=== PATIENT | male | born 1960 | race Caucasian/White ===

== ENCOUNTER 2019-11-28 17:16 | Inpatient (IN) | payer OTHER ==
[~2019-11-28] VITALS: Ht 195.6 cm; Wt 87.5 kg
[~2019-11-28 17:16] MED LIST: ATORVASTATIN CA10 MG PO; METFORMIN HCL500 MG PO
[2019-11-28] MEDS ORDERED: RAMIPRIL5 MG PO (18:02)
[2019-11-28] MEDS ORDERED: PANTOPRAZOLE SO40 MG PO (18:02)
[2019-11-28] MEDS ORDERED: XIGDUO XR 5 MG1 EAC1 PO (18:02)
[2019-11-28] MEDS ORDERED: SODIUM CHLORIDE 0.9% 1000ML 1,000 ML IV STA ×2 (18:18→18:19)
[2019-11-28 18:19] LABS: BASOPHILS % 0.3 % (0.0-1.0); EOSINOPHILS % 0.1 % (0.0-6.0); HEMATOCRIT 45.9 % (38.2-49.6); HEMOGLOBIN 16.1 g/dL (14.0-18.0); LYMPHOCYTES # (AUTO) 1.8 (1.0-3.2); LYMPHOCYTES % 16.2 % (18.0-39.1); MEAN CORPUSCULAR HGB CONC 35.1 g/dL (31-35); MEAN CORPUSCULAR VOLUME 91.3 fL (81-99); MONOCYTES # (AUTO) 0.6 (0.2-0.8); MONOCYTES % 5.4 % (4.4-11.3); NEUTROPHILS # (AUTO) 8.8 (2.1-6.9); NEUTROPHILS % 77.6 % (38.7-80.0); PLATELET COUNT 182 x10e3/uL (140-360); RED BLOOD COUNT 5.03 x10e6/uL (4.3-5.7); RED CELL DISTRIBUTION WIDTH 12.4 % (11.7-14.4)
[2019-11-28 18:23] LABS: INR 0.92; PROTHROMBIN TIME 12.9 seconds (11.9-14.5)
[2019-11-28] MEDS ORDERED: SODIUM CHLORIDE 0.9% 1000ML 1,000 ML ONE (18:23)
[2019-11-28 18:24] LABS: PARTIAL THROMBOPLASTIN TIME 22.7 seconds (23.8-35.5)
[2019-11-28 18:31] LABS: AMPHETAMINES SCREEN,URINE NEGATIVE (NEGATIVE); BENZODIAZEPINES SCREEN,URINE NEGATIVE (NEGATIVE); PHENCYCLIDINE SCREEN,URINE NEGATIVE (NEGATIVE)
[2019-11-28 18:33] LABS: ALANINE AMINOTRANSFERASE 25 IU/L (0-55); ALBUMIN 3.8 g/dL (3.5-5.0); ALBUMIN/GLOBULIN RATIO 0.9 (0.8-2.0); ALKALINE PHOSPHATASE 85 IU/L (40-150); ANION GAP 21.7 mmol/L (8-16); BLOOD UREA NITROGEN 14 mg/dL (7-26); BUN/CREATININE RATIO 16 (6-25); CALCIUM 9.5 mg/dL (8.4-10.2); CARBON DIOXIDE 19 mmol/L (22-29); CHLORIDE 97 mmol/L (98-107); CREATINE KINASE 39 IU/L (30-200); EST GLOMERULAR FILTRATION RATE > 60 ML/MIN (60-); GLUCOSE 189 mg/dL (74-118); POTASSIUM 4.7 mmol/L (3.5-5.1); SODIUM 133 mmol/L (136-145)
[2019-11-28] MEDS ORDERED: VANCOMYCIN 1GM/NS 250 ML 250 ML IV ONE (18:45)
[2019-11-28] MEDS ORDERED: CEFEPIME 2 GM/NS 0.9% 100 ML 100 ML IV SCH (18:45)
--- NOTE | 2019-11-28 19:16 | Diagnostic Imaging Report ---
EXAMINATION: CHEST SINGLE (PORTABLE) INDICATION: ^SOB, DIZZY COMPARISON: None FINDINGS: TUBES and LINES: None. LUNGS: Lungs are mildly hyperinflated. There is no evidence of pneumonia or pulmonary edema. PLEURA: No pleural effusion or pneumothorax. HEART AND MEDIASTINUM: The cardiomediastinal silhouette is unremarkable. BONES AND SOFT TISSUES: No acute osseous lesion. Soft tissues are unremarkable. UPPER ABDOMEN: No free air under the diaphragm. IMPRESSION: Mild bilateral hyperinflation. No acute thoracic abnormality. Signed by: Dr. Rivka Cleveland M.D. on 11/28/2019 7:13 PM
[2019-11-28] MEDS ORDERED: ENOXAPARIN SODIUM INJ 100 MG/ML SYR SC ONE (19:27)
[2019-11-28] MEDS ORDERED: ONDANSETRON HCL INJ 2MG/ML 2ML 2 MG/ML VIAL IV PRN (19:30)
[2019-11-28] MEDS ORDERED: MORPHINE SULFATE 2 MG/ML SYR 1ML IV PRN (19:30)
[2019-11-28] MEDS ORDERED: MORPHINE SULFATE INJ 4 MG/ML INJ 1ML IV PRN (19:30)
[2019-11-28] MEDS ORDERED: ASPIRIN 325 MG TAB PO ONE (19:30)
[2019-11-28 19:32] LABS: BILIRUBIN,URINE NEGATIVE (NEGATIVE); CLARITY,URINE CLEAR (CLEAR); COLOR,URINE YELLOW (YELLOW); LEUKOCYTE ESTERASE ,URINE NEGATIVE (NEGATIVE); NITRITE,URINE NEGATIVE (NEGATIVE); PROTEIN,URINE DIPSTICK NEGATIVE (NEGATIVE); URINE UROBILINOGEN 0.2 mg/dL (0.2 - 1)
[2019-11-28 19:33] LABS: KETONES,URINE 2+ (NEGATIVE)
[2019-11-28 19:37] LABS: EPITHELIAL CELLS,URINE RARE /LPF
--- OUTSIDE RECORDS SUMMARY | 2019-11-28 19:54 | XMS REPORT ---
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 Allergies, Adverse Reactions, Alerts This patient has no known allergies or adverse reactions. Medications This patient has no known medications. Results Test Description Test Time Test Comments Text Results Atomic Results Result Comments CHEST SINGLE (PORTABLE) 2019-11-28 19:12:00 [facility] [address] [address] Patient Name: KURTIS BYNUM MR #: [id number] : 1960 Age/Sex: 58/M Req #: [id number] Adm Physician: Ordered by: NICOLAS LOEN MD Report #: [id number] Location: ER Room/Bed: Procedure: [id number] DX/CHEST SINGLE (PORTABLE) Exam Date: 11/28/19 Exam Time: 1853 REPORT STATUS: Signed EXAMINATION: CHEST SINGLE (PORTABLE) INDICA TION: SOB, DIZZY COMPARISON: None FINDINGS: TUBES and LINES: None. LUNGS: Lungs are mildly hyperinflated. There is no evidence of pneumonia or pulmonary edema. PLEURA: No pleural effusion or pneumothorax. HEART AND MEDIASTINUM: The cardiomediastinal silhouette is unremarkable. BONES AND SOFT TISSUES: No acute osseous lesion. Soft tissues are unremarkable. UPPER ABDOMEN: No free air under the diaphragm. IMPRESSION: Mild bilateral hyperinflation. No acute thoracic abnormality. Signed by: Dr. Rivka Cleveland M.D. on 11/28/2019 7:13 PM Dictated By: CECILIA CLEVELAND MD, MD 12 Transcribed By: RENNY on 11/28/191912 COPY TO: NICOLAS LEON MD
[2019-11-28] MEDS ORDERED: SODIUM CHLORIDE 0.9% 1000ML 1,000 ML IV SCH ×2 (21:00)
[2019-11-28] MEDS ORDERED: DEXTROSE 50% SYRINGE 50 ML IV PRN (21:45)
[2019-11-28 21:46] VITALS: BP 109/80
--- NOTE | 2019-11-28 21:46 | NUR ---
RECEIVED PATIENT TO ROOM FROM ED AT THIS TIME. PATIENT A&OX4, NO PAIN REPORTED. PATIENT SOB FROM TRANSFERRING TO BED, SPO2 NOTED TO BE 95, BUT DROPPED DOWN TO 88, APPLIED 2L O2 VIA NC. PROVIDED URINAL TO PATIENT TO PREVENT EXERTION. LUNG SOUNDS CLEAR. BOWEL SOUNDS ACTIVE, PEDAL PULSES PALPABLE. SKIN INTACT. R AC 18G AND L FA 20G ASYMPTOMATIC, INTACT, AND PATENT. BED LOCKED IN LOWEST POSITION, SIDE RAILS UPX2, CALL LIGHT IN REACH.
[2019-11-28 22:07] VITALS: BP 109/80
[2019-11-28] MEDS ORDERED: INFLUENZA VIRUS VAC SPLIT INJ 0.5 ML SYR IM SCH (22:07)
--- NOTE | 2019-11-28 22:26 | NUR ---
SPOKE WITH MD VALDES CONCERNING PATIENT'S HR IN 130s, SINUS TACH. NEW ORDERS RECEIVED.
[2019-11-28] MEDS ORDERED: METOPROLOL SUCCINATE 25 MG TAB XL PO SCH (22:30)
[2019-11-28] MEDS: SODIUM CHLORIDE 0.9% 1000ML 1,000 ML IV SCH (22:44)
[2019-11-28] MEDS: METOPROLOL TARTRATE 25 MG TAB PO SCH (22:54)
[2019-11-29] VITALS (8 sets, daily range): BP systolic 91–111; BP diastolic 56–71
[2019-11-29 03:18] LABS: CREATINE KINASE MB 6.5 ng/mL (0-5.0)
[2019-11-29] MEDS: METOPROLOL TARTRATE 25 MG TAB PO SCH ×3 (06:00→21:58)
[2019-11-29] MEDS: SODIUM CHLORIDE 0.9% 1000ML 1,000 ML IV SCH ×2 (06:02→14:20)
--- NOTE | 2019-11-29 07:06 | NUR ---
walking rounds completed with steward/stewardess night RN, pt has no complaints at this time, no signs of distress. will continue to monitor.
[2019-11-29] MEDS: INSULIN REGULAR, HUMAN 100 UNIT/1 ML 3ML VIAL SQ SCH ×4 (08:15→20:19)
[2019-11-29 09:01] LABS: BASOPHILS % 0.2 % (0.0-1.0); EOSINOPHILS % 0.5 % (0.0-6.0); HEMATOCRIT 38.7 % (38.2-49.6); HEMOGLOBIN 13.1 g/dL (14.0-18.0); LYMPHOCYTES # (AUTO) 2.5 (1.0-3.2); LYMPHOCYTES % 28.8 % (18.0-39.1); MEAN CORPUSCULAR HEMOGLOBIN 31.3 pg (28-32); MEAN CORPUSCULAR HGB CONC 33.9 g/dL (31-35); MEAN CORPUSCULAR VOLUME 92.6 fL (81-99); MONOCYTES # (AUTO) 0.6 (0.2-0.8); MONOCYTES % 6.5 % (4.4-11.3); NEUTROPHILS # (AUTO) 5.5 (2.1-6.9); NEUTROPHILS % 63.7 % (38.7-80.0); PLATELET COUNT 149 x10e3/uL (140-360); RED BLOOD COUNT 4.18 x10e6/uL (4.3-5.7); RED CELL DISTRIBUTION WIDTH 12.6 % (11.7-14.4)
[2019-11-29 09:19] LABS: ALANINE AMINOTRANSFERASE 23 IU/L (0-55); ALBUMIN 2.9 g/dL (3.5-5.0); ALBUMIN/GLOBULIN RATIO 0.9 (0.8-2.0); ALKALINE PHOSPHATASE 65 IU/L (40-150); ANION GAP 12.3 mmol/L (8-16); BLOOD UREA NITROGEN 11 mg/dL (7-26); BUN/CREATININE RATIO 14 (6-25); CALCIUM 8.1 mg/dL (8.4-10.2); CARBON DIOXIDE 21 mmol/L (22-29); CHLORIDE 106 mmol/L (98-107); CREATININE, SERUM 0.81 mg/dL (0.72-1.25); EST GLOMERULAR FILTRATION RATE > 60 ML/MIN (60-); GLUCOSE 210 mg/dL (74-118); POTASSIUM 4.3 mmol/L (3.5-5.1); SODIUM 135 mmol/L (136-145)
[2019-11-29 09:52] LABS: CHOL/HDL RATIO 3.4 (3.9-4.7)
[2019-11-29] MEDS ORDERED: ENOXAPARIN SODIUM INJ 100 MG/ML SYR SC NR (10:43)
--- NOTE | 2019-11-29 10:45 | NUR ---
Dr. castillo at bedside ordered 100mg Lovenox STAT dose, pt diagnosed with PE. paging Dr. Chris Rangel for pulmonary consult.
--- NOTE | 2019-11-29 11:07 | Diagnostic Imaging Report ---
EXAM: CT Chest WITH contrast- Pulmonary Embolism Protocol INDICATION: Shortness of breath, chest pain COMPARISON: Chest radiograph of 11/28/2019 TECHNIQUE: Chest was scanned utilizing a multidetector helical scanner from the lung apex through the level of the diaphragm after administration of IV contrast. Thin section reconstructions were obtained with special concentration on the pulmonary arteries. Coronal and sagittal reformations were obtained. Pulmonary embolism protocol was performed. IV CONTRAST: 100 cc of Isovue 370 RADIATION DOSE: Total DLP: 578.2 mGy*cm Dose modulation, iterative reconstruction, and/or weight based adjustment of the mA/kV was utilized to reduce the radiation dose to as low as reasonably achievable. COMPLICATIONS: None FINDINGS: LINES/ TUBES: None. PULMONARY ARTERIES: Large saddle pulmonary embolus extending from the main pulmonary artery across the bifurcation and involving all segmental and subsegmental branches of the pulmonary arteries bilaterally.. The main pulmonary artery measures 3.3 cm in diameter. Minimal leftward bowing of the interventricular septum compatible with mild component of right heart strain. LUNGS AND AIRWAYS: The central airways are patent. No focal consolidation. No pulmonary edema. Mild biapical pleural parenchymal thickening/scarring. PLEURA: The pleural spaces are clear. HEART AND MEDIASTINUM: The thyroid gland is normal. No supraclavicular, mediastinal, or hilar lymphadenopathy. The heart is not enlarged. No pericardial effusion. Moderate sliding hiatal hernia. UPPER ABDOMEN: Limited images of the upper abdomen demonstrate no focal abnormality of the partially visualized liver, gallbladder, spleen, pancreas, adrenals, or upper most kidneys. BONES: The visualized bony thorax is within normal limits. SOFT TISSUES: Unremarkable. IMPRESSION: Large saddle pulmonary embolus extending from the main pulmonary artery and involving all segmental and subsegmental branches of the pulmonary arteries bilaterally. Mild associated right heart strain. No focal pneumonia or pulmonary edema. No pulmonary infarction or hemorrhage. The above findings were discussed with Dr. Thomsa on 11/29/2019 10:55 AM, who responded indicating that the communication was understood. Signed by: Solo Yañez MD on 11/29/2019 11:03 AM
--- NOTE | 2019-11-29 11:09 | NUR ---
spoke with Dr. Darby who was paged for STAT pulmonary consult. he will come see pt today.
[2019-11-29] MEDS ORDERED: SODIUM CHLORIDE 0.9% 50ML 50 ML ONE (12:46)
[2019-11-29] MEDS ORDERED: IOPAMIDOL 370 MG/ML 200 ML INFUS..BTL INJ ONE (12:46)
--- NOTE | 2019-11-29 13:08 | NUR ---
Dr. Darby at bedside, informed him of positive DVT results per US tech.
--- NOTE | 2019-11-29 13:15 | NUR ---
Visit made by the Spiritual Care Department Pastoral Visitor, Lynette Godoy. PV provided pastoral presence, hospitality, and supportive listening. Pastoral Visitor informed pt/family of the scope of Bridge Worker Apprentice Services and availability. CHRISTIAN BONNER Stereotyper Helper Spiritual Care Department O: [phone] Pager: [phone] ([phone] number calling from)
--- NOTE | 2019-11-29 15:43 | Consultation ---
DATE OF CONSULTATION: 11/29/2019 REASON FOR CONSULTATION: Elevated troponin, [id number] myocardial infarction. HISTORY OF PRESENT ILLNESS: A 58-year-old gentleman, who is diabetic, hypertensive, hypercholesterolemic for the last 5 years. He is very active. The patient came to the emergency room with 2 days' duration of shortness of breath, dizziness. No cough. No hemoptysis. No pleuritic chest pain. No pericarditic chest pain. The patient's troponin was elevated at 0.393. His EKG showing sinus tachycardia. He is compliant with his medication. He is very active. In fact, by questioning him, he is very physically active and he had recent travel to [place]. He came back on November 04, 2019. Since that time, he is doing fine. He is very active without any symptoms or any complaint. All his problems started yesterday when he had 2 episodes of shortness of breath and dizziness and near syncope. There is some chest tightness, but no cough, no hemoptysis, no pleuritic chest pain, no recent infection. REVIEW OF SYSTEMS: GENERAL: No fever. No chills. HEENT: No vision problem. No hearing problem. PULMONARY: As per above. CARDIAC: As per above. GI: No hematemesis. No melena. : No hematuria. No dysuria. MUSCULOSKELETAL: No aches. No pains. VASCULAR: No leg swelling. No claudication. NEUROLOGICAL: No seizure. No weakness. ENDOCRINE: The patient is diabetic, very compliant with his medication. SOCIAL HISTORY: He stopped smoking many years ago. He is a social alcohol drinker. 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 He is . PAST MEDICAL HISTORY: 1. Diabetes mellitus since 2015. 2. Hypertension. 3. Hyperlipidemia. 4. Knee surgery. 5. History of left retinal detachment. FAMILY HISTORY: Father of cancer in the brain stem, questionable primary. Mother at age 72, questionable cause of . She had heart failure. He had 4 brothers. He lost a brother to lung cancer at age 55. No sisters. Two healthy children, one son and one daughter. PHYSICAL EXAMINATION: VITAL SIGNS: Height of 6 feet 5 inches, weight of 193 pounds. Blood pressure 100/60, heart rate of 100, and respiratory rate of 18, temperature 96 Fahrenheit. HEENT: Pupils are reactive. NECK: No elevation of jugular venous pulsation. No bruit. CHEST: Clear to auscultation and percussion. HEART: PMI in 5th left intercostal space on first and second heart sounds. No increased intensity of second heart sound. No right ventricular heave. ABDOMEN: Soft. There is no organomegaly. No abdominal bruits. EXTREMITIES: No cyanosis. No clubbing. No edema. No signs of deep venous thrombosis. NEUROLOGIC: Nonfocal. LABORATORY DATA: Sodium of 133, potassium of 4.7, BUN of 14, creatinine of 0.9. White blood cell count of 8.6, hemoglobin of 13.1, hematocrit 38%. PT of 12.9, PTT of 22. Transaminases are normal. EKG showing sinus tachycardia, left atrial enlargement, QS pattern in V1, V2. Troponin 0.393. Stable BNP of only 65. Lactic acid of 2.4. IMPRESSION AND PLAN: Shortness of breath with dizziness in a diabetic, hypertensive, hypercholesterolemic gentleman with elevated troponin will indicate myocardial strain. Because of the patient's history of travel, although it was concluded on November 04, there is always probability of pulmonary embolism with such presentation. A stat chest PE protocol to be done and the lab to be called to add D-dimer for the PT, PTT drawn earlier to see if it is elevated. If this is elevated, it will be very highly suspicious for PE diagnosis pending the CT PE protocol. In fact, we called the lab to run this as stat. We talked to radiological to come and take him stat for PE. Other differential diagnosis is definitely not a demand myocardial infarction, but primary coronary artery disease, which is very common in a diabetic, hypertensive, hypercholesterolemic gentlemen in this age. So, in summary, the plan is to do stat chest CT PE protocol is to do D-dimer on the PT, PTT drawn earlier. The patient attended and in fact, we followed him to the CT scan. The report is not ready, but definitely it confirms the presence of subtle aneurysm. Lovenox 100 mg given. I would recommend stat Pulmonary consultation for further management. All this discussed and explained, care is explained. We will follow Pulmonary recommendation. Also, because of the family history of cancer, probably it will not be a bad idea to have workup for occult malignancy and not to blame at all on the travel which concluded on November 04. All this discussed and explained to the patient and his . We will follow the patient's progression with you. First dose of Lovenox was given. Questions are answered. MD CAROLINE Pereyra/MODL /[id number]
--- NOTE | 2019-11-29 19:00 | NUR ---
RECEIVED PATIENT IN BEDSIDE REPORT. PATIENT REPORTS NO PAIN, NO SOB AT THIS TIME. R AC 22G IV ASYMPTOMATIC, INTACT, AND PATENT, RUNNING NS @ 125 ML/HR. NO S&S OF DISTRESS NOTED. BED LOCKED IN LOWEST POSITION, SIDE RAILS UPX2, CALL LIGHT IN REACH.
[2019-11-29 19:05] LABS: CREATINE KINASE MB 2.8 ng/mL (0-5.0)
[2019-11-29] MEDS: ATORVASTATIN 10 MG TAB PO SCH (21:58)
[2019-11-29] MEDS: ENOXAPARIN SODIUM INJ 100 MG/ML SYR SC SCH (21:58)
[2019-11-30] VITALS (8 sets, daily range): BP systolic 111–134; BP diastolic 69–84
--- NOTE | 2019-11-30 02:55 | Consultation ---
DATE OF CONSULTATION: 11/29/2019 Pulmonary Medicine Consult REASON FOR REFERRAL: Pulmonary emboli. HISTORY OF PRESENT ILLNESS: Mr. Jackson is a pleasant 58-year-old gentleman with pulmonary emboli. The patient has no family history of thromboembolic disease in his family. He is not sedentary at all based on his lifestyle. He has had no previous thromboembolic disease history, and no malignancy. The patient drove to [facility] over two days and he drove back from [place], [place] in one day on November 04, 2019. The patient was in usual state of health when he experienced one day of shortness of breath. The shortness of breath was acute and intense and was very worrisome. They brought him to the emergency room, where he was evaluated. The patient initially without definite evidence of myocardial infarction. Therefore, the patient was sent for CT angiography, which demonstrated 33 mm main pulmonary artery trunk. He had a moderate size hiatal hernia and bilateral PE including saddle embolism. His initial heart rate coming to emergency room was 133, but has recently come down to 90 to 100 beats per minute. Blood pressure was never low. Additional CAT scan findings demonstrated right ventricular hypertrophy with bowing of the interventricular septum, leftward. I am consulted. PAST MEDICAL HISTORY: Hypertension, diabetes, hyperlipidemia, GERD. No asthma, no allergies. He has obstructive sleep apnea and is on CPAP for 10 years. MEDICATIONS: Medication list reviewed per the chart record. ALLERGIES: NO KNOWN DRUG ALLERGIES. SOCIAL HISTORY: He drinks three to six alcoholic drinks for the last 15 years per day. He smoked from age 15 to 35, 1.5 packs per day, but quit long ago. No drugs. 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 FAMILY HISTORY: Noncontributory. REVIEW OF SYSTEMS: GENERALLY: No weight changes. OPHTHALMOLOGIC: No double vision. ENT: No mouth ulcers. ENDOCRINE: No thyroid disease. PULMONARY: No hemoptysis. CARDIAC: No NH. GASTROINTESTINAL: No constipation. GENITOURINARY: No bloody urine. DERMATOLOGIC: No rash. MUSCULOSKELETAL: Only mild arthritis. NEUROLOGIC: No seizures. OBJECTIVE: VITAL SIGNS: Afebrile, vital signs noted and reviewed per the chart record. GENERAL: In no acute distress, alert and calmer than what was reported earlier in bed. HEENT: Normocephalic and atraumatic. NECK: Supple. Throat midline. LUNGS: Bilateral air entry with clear lungs. CARDIOVASCULAR: S1, S2. No murmurs, no rubs. ABDOMINAL EXAM: Soft and nontender. EXTREMITIES: No clubbing, no cyanosis. There is no edema. INTEGUMENT: No rash, no purpura. LABORATORY DATA: Labs reviewed per the chart record. Include sodium and bicarbonate, creatinine is 0.81. White count 9, 39 hematocrit, and 149 platelets. LFTs unremarkable. IMPRESSION AND PLAN: 1. Acute pulmonary embolism. 2. Deep venous thrombosis, just noted. 3. Secondary pulmonary hypertension surmise. 4. Alcohol dependency/abuse. 5. Former smoker, quit long ago. 6. Long trip on November 04, 2019 to [place]. 7. Moderate size hiatal hernia. 8. Known obstructive sleep apnea. 9. Diabetes, hypertension, hyperlipidemia, and gastroesophageal reflux disease. 10. Ultrasound of leg just done. Continue Lovenox anticoagulation as the patient likely will continue to improve. The patient should not over exert himself. Check echocardiogram to assess how severe the pulmonary hypertension is and determine if the patient needs workup for chronic thromboembolic pulmonary hypertension at that point. The patient will have further recommendations based on clinical course. Thank you very much, Dr. Rangel for this consult. Please call for questions. MD BALDOMERO Villasenor/MODL /[id number]
[2019-11-30] MEDS: SODIUM CHLORIDE 0.9% 1000ML 1,000 ML IV SCH ×3 (03:17→12:48)
[2019-11-30] MEDS: METOPROLOL TARTRATE 25 MG TAB PO SCH ×2 (06:00→16:51)
--- NOTE | 2019-11-30 07:21 | NUR ---
bedside walking rounds completed, change of shift report received, pt sleeping, easily aroused, no complaints at this time.
[2019-11-30] MEDS: INSULIN REGULAR, HUMAN 100 UNIT/1 ML 3ML VIAL SQ SCH ×4 (08:15→22:10)
[2019-11-30] MEDS: [UNRECOGNIZED DRUG - OTHER] PO SCH (08:16)
[2019-11-30] MEDS: DAPAGLIFLOZIN PO SCH (08:16)
[2019-11-30] MEDS: METFORMIN HCL PO SCH (08:16)
[2019-11-30] MEDS: RAMIPRIL 5 MG CAP PO SCH (08:17)
[2019-11-30] MEDS: PANTOPRAZOLE SOD 40 MG TABEC PO SCH (08:17)
[2019-11-30] MEDS: ENOXAPARIN SODIUM INJ 100 MG/ML SYR SC SCH ×2 (08:20→21:17)
--- NOTE | 2019-11-30 12:29 | NUR ---
PT DISCUSSED IN ROUNDS HAS PULM CONSULT ON LOVENOX, PLAN IS TO DC TOMORROW
--- NOTE | 2019-11-30 18:53 | NUR ---
CHANGE OF SHIFT REPORT GIVEN TO CLINICAL EVALUATOR RN. PT AWAKE, ALERT, NO SIGNS OF DISTRESS, NO COMPLAINTS. IN STABLE CONDITION.
--- NOTE | 2019-11-30 19:14 | NUR ---
Pulmonary Medicine DATE 11/30/2019 SUBJECTIVE: 2 l/MIN OXYGEN nasal cannula patient took shower yesterday, no dizziness at all echo 60-65% lvef, RVSP 31, RV 3.8-4.1 cm no bleeding REVIEW OF SYSTEMS: no rash, no chest pain OBJECTIVE: VITAL SIGNS: vital signs noted and reviewed per the chart record. GENERAL: NAD, alert and calm HEENT: Normocephalic and atraumatic. NECK: Supple. Throat midline. LUNGS: Bilateral air entry with clear lungs. CARDIOVASCULAR: S1, S2. No murmurs, no rubs. ABDOMINAL EXAM: Soft and nontender. EXTREMITIES: No clubbing, no cyanosis. No edema. INTEGUMENT: No rash, no purpura. LABORATORY DATA: k 4.3, cr 0.81 IMPRESSION AND PLAN: 1. Acute pulmonary embolism. 2. Deep venous thrombosis 3. Secondary pulmonary hypertension, being handled relatively well 4. Alcohol abuse. 5. Former smoker, quit long ago. 6. Long trip on November 04, 2019 to [place]. 7. Moderate size hiatal hernia, GERD. 8. Known obstructive sleep apnea. 9. Diabetes, hypertension, hyperlipidemia Continue Lovenox anticoagulation Can change to NOAC soon Careful mobilizing, as the patient should still not overexert Concern for chronic thromboembolic pulmonary HTN as the patient is handling these clots so well Outpatient re-assessment for chronic thromboembolic pulmonary hypertension possibility Thank you very much, Dr. Rangel for this consult. Please call for questions.
[2019-11-30] MEDS: ATORVASTATIN 10 MG TAB PO SCH (21:17)
[2019-12-01] VITALS (8 sets, daily range): BP systolic 121–145; BP diastolic 70–82
[2019-12-01] MEDS: SODIUM CHLORIDE 0.9% 1000ML 1,000 ML IV SCH ×2 (00:45→17:51)
[2019-12-01 05:17] LABS: BASOPHILS % 0.4 % (0.0-1.0); EOSINOPHILS # (AUTO) 0.1 (0.0-0.4); EOSINOPHILS % 1.6 % (0.0-6.0); HEMATOCRIT 33.8 % (38.2-49.6); HEMOGLOBIN 11.7 g/dL (14.0-18.0); LYMPHOCYTES # (AUTO) 2.2 (1.0-3.2); LYMPHOCYTES % 38.8 % (18.0-39.1); MEAN CORPUSCULAR HEMOGLOBIN 31.6 pg (28-32); MEAN CORPUSCULAR HGB CONC 34.6 g/dL (31-35); MEAN CORPUSCULAR VOLUME 91.4 fL (81-99); MONOCYTES # (AUTO) 0.5 (0.2-0.8); MONOCYTES % 8.1 % (4.4-11.3); NEUTROPHILS # (AUTO) 2.9 (2.1-6.9); NEUTROPHILS % 50.7 % (38.7-80.0); PLATELET COUNT 146 x10e3/uL (140-360); RED CELL DISTRIBUTION WIDTH 12.3 % (11.7-14.4)
--- NOTE | 2019-12-01 07:00 | NUR ---
RECEIVED PATIENT RESTING IN BED NO S/S OF DISTRESS. BED LOW, WHEELS LOCKED, SIDE RAILS X2. CALL LIGHT IN REACH WILL CONTINUE TO MONITOR PATIENT.
[2019-12-01] MEDS: DAPAGLIFLOZIN PO SCH (08:16)
[2019-12-01] MEDS: METFORMIN HCL PO SCH (08:16)
[2019-12-01] MEDS: RAMIPRIL 5 MG CAP PO SCH (08:16)
[2019-12-01] MEDS: [UNRECOGNIZED DRUG - OTHER] PO SCH (08:16)
[2019-12-01] MEDS: INSULIN REGULAR, HUMAN 100 UNIT/1 ML 3ML VIAL SQ SCH ×4 (08:17→21:15)
[2019-12-01] MEDS: METOPROLOL TARTRATE 25 MG TAB PO SCH ×2 (08:17→17:51)
[2019-12-01] MEDS: ENOXAPARIN SODIUM INJ 100 MG/ML SYR SC SCH ×2 (08:17→20:55)
[2019-12-01] MEDS: PANTOPRAZOLE SOD 40 MG TABEC PO SCH (08:17)
--- NOTE | 2019-12-01 09:22 | Diagnostic Imaging Report ---
EXAMINATION: CHEST SINGLE (PORTABLE) INDICATION: Pulmonary embolism COMPARISON: Chest CT of 11/29/2019, chest radiograph 11/28/2019 FINDINGS: LINES/TUBES:EKG leads overlie the chest. LUNGS:The lungs are mildly hyperinflated. No focal consolidation or pulmonary edema. PLEURA:No pleural effusion or pneumothorax. MEDIASTINUM:The cardiomediastinal silhouette appears normal in size and shape. BONES/SOFT TISSUES:No acute osseous injury. ABDOMEN:No free air under the diaphragm. IMPRESSION: Mildly hyperinflated lungs. No focal pneumonia or pulmonary edema. Known pulmonary embolism, as detailed on chest CT of 11/29/2019. Signed by: Solo Yañez MD on 12/01/2019 9:19 AM
[2019-12-01] MEDS ORDERED: ONDANSETRON HCL 4 MG ORAL DISINTEGRATING TAB PO PRN (09:30)
--- NOTE | 2019-12-01 09:50 | NUR ---
Pt. expressed no spiritual or emotional concerns at this time. CHRISTIAN BONNER Qm Nurse Spiritual Care Department O: [phone] Pager: [phone] ([phone] number calling from)
--- NOTE | 2019-12-01 12:44 | NUR ---
Pulmonary Medicine DATE 12/01/2019 SUBJECTIVE: RA fio2 saturation 95% walked, no dizziness again REVIEW OF SYSTEMS: no rash, no chest pain OBJECTIVE: VITAL SIGNS: vital signs noted and reviewed per the chart record. GENERAL: NAD, alert and calm HEENT: Normocephalic and atraumatic. NECK: Supple. Throat midline. LUNGS: Bilateral air entry with clear lungs. CARDIOVASCULAR: S1, S2. No murmurs, no rubs. ABDOMINAL EXAM: Soft and nontender. EXTREMITIES: No clubbing, no cyanosis. No edema. INTEGUMENT: No rash, no purpura. LABORATORY DATA: plt 146 IMPRESSION AND PLAN: 1. Acute pulmonary embolism. 2. Deep venous thrombosis 3. Secondary pulmonary hypertension, being handled relatively well 4. Alcohol abuse. 5. Former smoker, quit long ago. 6. Long trip on November 04, 2019 to [place]. 7. Moderate size hiatal hernia, GERD. 8. Known obstructive sleep apnea. 9. Diabetes, hypertension, hyperlipidemia Continue Lovenox anticoagulation Can change to NOAC soon Careful mobilizing, as the patient should still not overexert / light activity only Concern for chronic thromboembolic pulmonary HTN as the patient is handling these clots so well Outpatient re-assessment for chronic thromboembolic pulmonary hypertension Thank you very much, Dr. Rangel for this consult. Please call for questions.
--- NOTE | 2019-12-01 15:28 | NUR ---
Spoke to patient, informed him his MD is going to dc him on oral anticoagulation. He states his pharmacy is [facility]; asked patient to call and request pricing. Also informed him we can provide discount cards as well. Patient also wanting FMLA papers filled out since he will be off work for a few weeks - directed him to Dr. Rangel's office. CM to follow.
[2019-12-01] MEDS: ATORVASTATIN 10 MG TAB PO SCH (20:55)
[2019-12-02] VITALS: BP 158/92
[2019-12-02 04:00] VITALS: BP 127/76
[2019-12-02] MEDS: SODIUM CHLORIDE 0.9% 1000ML 1,000 ML IV SCH (04:48)
[2019-12-02] MEDS: INSULIN REGULAR, HUMAN 100 UNIT/1 ML 3ML VIAL SQ SCH ×3 (08:30→16:30)
[2019-12-02 08:46] VITALS: BP 134/78
[2019-12-02] MEDS: METFORMIN HCL PO SCH (09:00)
[2019-12-02] MEDS: DAPAGLIFLOZIN PO SCH (09:00)
[2019-12-02] MEDS: [UNRECOGNIZED DRUG - OTHER] PO SCH (09:00)
[2019-12-02] MEDS: ENOXAPARIN SODIUM INJ 100 MG/ML SYR SC SCH (10:00)
[2019-12-02] MEDS: RAMIPRIL 5 MG CAP PO SCH (10:00)
[2019-12-02] MEDS: PANTOPRAZOLE SOD 40 MG TABEC PO SCH (10:00)
[2019-12-02] MEDS: METOPROLOL TARTRATE 25 MG TAB PO SCH ×2 (10:00→17:33)
[2019-12-02 10:11] VITALS: BP 134/78
[2019-12-02 11:31] VITALS: BP 118/85
--- NOTE | 2019-12-02 11:48 | NUR ---
Provided patient with an [employer] discount card. Patient states MD says he will take it for 6 months. Patient states he will also use his flex spending account to pay for med. Verb's understanding that he will need to take it for as long as prescribed. MEGHNA left card with patient.
--- NOTE | 2019-12-02 12:00 | NUR ---
MD Ness CLARK INTO SEE PT, DISCUSSED POC
--- NOTE | 2019-12-02 12:37 | NUR ---
MD DOWD INTO SEE PT, DISCUSSED POC
--- NOTE | 2019-12-02 15:54 | NUR ---
Pulmonary Medicine DATE 12/02/2019 SUBJECTIVE: 2 L/min oxygen <---> RA fio2 no dizzyness walked REVIEW OF SYSTEMS: no rash, no chest pain OBJECTIVE: VITAL SIGNS: vital signs noted and reviewed per the chart record. GENERAL: NAD, alert and calm HEENT: Normocephalic and atraumatic. NECK: Supple. Throat midline. LUNGS: Bilateral air entry with clear lungs. CARDIOVASCULAR: S1, S2. No murmurs, no rubs. ABDOMINAL EXAM: Soft and nontender. EXTREMITIES: No clubbing, no cyanosis. No edema. INTEGUMENT: No rash, no purpura. LABORATORY DATA: no new updates IMPRESSION AND PLAN: 1. Acute pulmonary embolism. 2. Deep venous thrombosis 3. Secondary pulmonary hypertension, being handled relatively well 4. Alcohol abuse. 5. Former smoker, quit long ago. 6. Long trip on November 04, 2019 to [place]. 7. Moderate size hiatal hernia, GERD. 8. Known obstructive sleep apnea. 9. Diabetes, hypertension, hyperlipidemia Continue Lovenox anticoagulation change to eliquis Careful mobilizing, as the patient should still not overexert / light activity only. 2 weeks light activity only Concern for chronic thromboembolic pulmonary HTN as the patient is handling these clots so well Outpatient re-assessment for chronic thromboembolic pulmonary hypertension Thank you very much, Dr. Rangel for this consult. Please call for questions.
[2019-12-02 16:04] VITALS: BP 142/88
[2019-12-02] MEDS ORDERED: ELIQUIS5 MG PEG (17:03)
[2019-12-02] MEDS ORDERED: ELIQUIS5 MG PO (17:04)
== END 2019-12-02 17:35 | disposition home or self-care (01) | DRG 176 ==
LOC: ER 17:16 → ERHOLD 19:49 → MED/SURG 21:48
DX: I26.92 Saddle embolus of pulmonary artery without acute cor pulmonale (principal); I82.432 Acute embolism and thrombosis of left popliteal vein; I82.442 Acute embolism and thrombosis of left tibial vein; I10 Essential (primary) hypertension; E11.9 Type 2 diabetes mellitus without complications; E78.5 Hyperlipidemia, unspecified; F10.20 Alcohol dependence, uncomplicated; Z87.891 Personal history of nicotine dependence; K44.9 Diaphragmatic hernia without obstruction or gangrene; K21.9 Gastro-esophageal reflux disease without esophagitis; G47.33 Obstructive sleep apnea (adult) (pediatric); I27.20 Pulmonary hypertension, unspecified
CPT/HCPCS: 36415; 71045; 71260; 80053; 80061; 80307; 81001; 82550; 82553; 82948; 83036; 83605; 83880; 84443; 84484; 85025; 85379; 85610; 85730; 87040; 87086; 87400; 93005; 93306; 93970; 99284; J1650; J1817; J7030; Q9967

== ENCOUNTER → 2020-03-30 | Outpatient (CLI) | payer OTHER ==
[~2020-03-30] MED LIST changes: +ELIQUIS5 MG PEG; +ELIQUIS5 MG PO; +PANTOPRAZOLE SO40 MG PO; +RAMIPRIL5 MG PO; +XIGDUO XR 5 MG1 EAC1 PO
== END ==
LOC: RESP 12:36
PROVIDERS: ATTEND Internal Medicine Critical Care Medicine
DX: R09.02 Hypoxemia (principal); I26.99 Other pulmonary embolism without acute cor pulmonale; I27.20 Pulmonary hypertension, unspecified; G47.33 Obstructive sleep apnea (adult) (pediatric); Z87.891 Personal history of nicotine dependence
CPT/HCPCS: 94060; 94727; 94729

== ENCOUNTER 2020-10-15 10:54 | Emergency (ER) | payer OTHER ==
[~2020-10-15] VITALS: Ht 195.6 cm; Wt 87.5 kg
[2020-10-15] MEDS ORDERED: SODIUM CHLORIDE 0.9% 1000ML 1,000 ML IV STA ×2 (11:00→13:28)
[2020-10-15] MEDS ORDERED: DILTIAZEM HCL 5 MG/ML 5 ML VIAL IV STA (11:11)
[2020-10-15 11:23] LABS: BASOPHILS # (AUTO) 0.1 (0.0-0.1); BASOPHILS % 0.4 % (0.0-1.0); EOSINOPHILS # (AUTO) 0.1 (0.0-0.4); EOSINOPHILS % 0.6 % (0.0-6.0); HEMATOCRIT 49.7 % (38.2-49.6); HEMOGLOBIN 16.6 g/dL (14.0-18.0); LYMPHOCYTES # (AUTO) 3.9 (1.0-3.2); LYMPHOCYTES % 33.3 % (18.0-39.1); MEAN CORPUSCULAR HEMOGLOBIN 31.6 pg (28-32); MEAN CORPUSCULAR HGB CONC 33.4 g/dL (31-35); MEAN CORPUSCULAR VOLUME 94.7 fL (81-99); MONOCYTES # (AUTO) 0.9 (0.2-0.8); MONOCYTES % 7.3 % (4.4-11.3); NEUTROPHILS # (AUTO) 6.8 (2.1-6.9); NEUTROPHILS % 57.9 % (38.7-80.0); PLATELET COUNT 226 x10e3/uL (140-360); RED BLOOD COUNT 5.25 x10e6/uL (4.3-5.7); RED CELL DISTRIBUTION WIDTH 12.5 % (11.7-14.4)
[2020-10-15] MEDS ORDERED: DILTIAZEM HCL VIAL 5 ML ONE (11:25)
[2020-10-15 11:30] LABS: INR 0.92; PARTIAL THROMBOPLASTIN TIME 25.7 seconds (23.8-35.5); PROTHROMBIN TIME 12.8 seconds (11.9-14.5)
[2020-10-15] MEDS ORDERED: ENOXAPARIN SODIUM INJ 100 MG/ML SYR SC ONE (11:30)
[2020-10-15 11:42] LABS: ALANINE AMINOTRANSFERASE 42 IU/L (0-55); ALBUMIN 4.2 g/dL (3.5-5.0); ALBUMIN/GLOBULIN RATIO 1.1 (0.8-2.0); ALKALINE PHOSPHATASE 77 IU/L (40-150); ANION GAP 21.6 mmol/L (8-16); BLOOD UREA NITROGEN 11 mg/dL (7-26); BUN/CREATININE RATIO 10 (6-25); CALCIUM 9.7 mg/dL (8.4-10.2); CARBON DIOXIDE 21 mmol/L (22-29); CHLORIDE 100 mmol/L (98-107); CREATINE KINASE 28 IU/L (30-200); CREATININE, SERUM 1.09 mg/dL (0.72-1.25); EST GLOMERULAR FILTRATION RATE > 60 ML/MIN (60-); GLUCOSE 333 mg/dL (74-118); MAGNESIUM 1.9 MG/DL (1.3-2.1); POTASSIUM 3.6 mmol/L (3.5-5.1); SODIUM 139 mmol/L (136-145)
[2020-10-15] MEDS ORDERED: ADENOSINE 6 MG/2 ML VIAL IV ONE (12:19)
[2020-10-15] MEDS ORDERED: IOPAMIDOL 370 MG/ML 200 ML INFUS..BTL INJ ONE (12:22)
[2020-10-15] MEDS ORDERED: SODIUM CHLORIDE 0.9% 50ML 50 ML ONE (12:22)
[2020-10-15] MEDS ORDERED: ADENOSINE 6MG/2ML 2 ML ONE (12:25)
[2020-10-15] MEDS ORDERED: AMIODARONE HCL 360MG 200 ML IV SCH ×2 (12:45→18:00)
[2020-10-15] MEDS ORDERED: AMIODARONE HCL 150MG 100 ML IV SCH (12:45)
[2020-10-15] MEDS ORDERED: DILTIAZEM HCL 125 ML IV SCH (13:00)
[2020-10-15] MEDS ORDERED: DILTIAZEM HCL 5 MG/ML 5 ML VIAL IV NR (13:00)
[2020-10-15] MEDS ORDERED: DILTIAZEM HCL IV SOLN 125 MG in SODIUM CHLORIDE 0.9% 100 ML 100 ML IV PRN (13:30)
[2020-10-15 16:43] VITALS: BP 129/84
== END 2020-10-15 16:48 | disposition other institution (70) ==
LOC: ER 10:57
DX: I26.99 Other pulmonary embolism without acute cor pulmonale (principal); R94.31 Abnormal electrocardiogram [ECG] [EKG]; E11.65 Type 2 diabetes mellitus with hyperglycemia; I10 Essential (primary) hypertension; E78.5 Hyperlipidemia, unspecified; F41.9 Anxiety disorder, unspecified; K21.9 Gastro-esophageal reflux disease without esophagitis; G47.30 Sleep apnea, unspecified; Z20.828 Contact with and (suspected) exposure to other viral communicable diseases
CPT/HCPCS: 36415; 71045; 71260; 80053; 82550; 82553; 83735; 83880; 84484; 85025; 85379; 85610; 85730; 93005; 93306; 99285; J0153; J1650; J7030; Q9967; U0002